=== PATIENT | male | born 1990 | race Caucasian/White ===

== ENCOUNTER 2019-05-05 17:35 | Emergency (ER) | payer MEDICAID ==
[~2019-05-05] VITALS: Ht 172.7 cm; Wt 63.5 kg
[~2019-05-05 17:35] MED LIST: DIVA500T1 PO
--- NOTE | 2019-05-05 17:35 | NUR ---
PT IN WHEELCHAIR TO ER BED 10
[2019-05-05 17:42] VITALS: BP 120/81
[2019-05-05] MEDS ORDERED: levETIRAcetam 500 MG in NACL 0.9% 100 ML IV ONE (17:45)
[2019-05-05] MEDS ORDERED: levETIRAcetam 100 MG/ML VIAL IV ONE (17:50)
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
--- NOTE | 2019-05-05 17:57 | NUR ---
INFORMED PT WE NEED URINE SAMPLE. PT REFUSED TO USE URINAL AT THIS TIME AND REFUSED STRAIGHT CATH.
[2019-05-05 18:20] LABS: BASOPHILS % (AUTO) 0.1 % (0.0-2.0); EOSINOPHILS # (AUTO) 0.1 K/uL (0-0.4); EOSINOPHILS % (AUTO) 0.8 % (0.0-4.0); HEMATOCRIT 45.7 % (36-52); HEMOGLOBIN 15.1 g/dL (12.0-18.0); LYMPHOCYTES # (AUTO) 4.2 K/uL (2.0-11.5); LYMPHOCYTES % (AUTO) 49.5 % (20.5-51.1); MEAN CORPUSCULAR HEMOGLOBIN 31 pg (27-31); MEAN CORPUSCULAR HGB CONC 33 g/dL (33-37); MEAN CORPUSCULAR VOLUME 93.4 fL (80-94); MONOCYTES # (AUTO) 0.5 K/uL (0.8-1.0); MONOCYTES % (AUTO) 5.3 % (1.7-9.3); NEUTROPHILS # (AUTO) 3.8 K/uL (1.8-7.7); NEUTROPHILS % (AUTO) 44.3 % (42.2-75.2); PLATELET COUNT (AUTO) 276 K/uL (140-450); RED BLOOD CELL COUNT(AUTO) 4.89 MIL/uL (4.20-6.10); RED CELL DISTRIBUTION WIDTH 13.1 % (11.6-13.7); WHITE BLOOD COUNT (AUTO) 8.5 K/uL (4.8-10.8)
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
--- NOTE | 2019-05-05 18:25 | NUR ---
INFORMED MOTHER AT BEDSIDE THAT WE NEED URINE SAMPLE. PT CONTINUES TO REFUSE TO USE URINAL AND STRAIGHT CATH.
[2019-05-05 18:35] LABS: ANION GAP 30.4 (8-16); CARBON DIOXIDE 15.3 mmol/L (21-32); CHLORIDE 98 mmol/L (98-107); CREATININE 1.2 mg/dL (0.7-1.3); GFR ARICAN-AMERICAN 91 mL/min (>90); GLUCOSE 67 mg/dL (74-106); POTASSIUM 3.7 mmol/L (3.5-5.1); SODIUM SERUM 140 mmol/L (136-145); UREA NITROGEN, BLOOD 13 mg/dL (7-18)
[2019-05-05 18:41] LABS: ALBUMIN 4.7 g/dL (3.4-5.0); ASPARTATE AMINOTRANSFERASE 20 U/L (15-37); TOTAL BILIRUBIN 0.4 mg/dL (0.0-1.0)
--- NOTE | 2019-05-05 18:47 | NUR ---
NOTIFIED DR. PARKER UNABLE TO OBTAIN URINE. PER DR. PARKER, NO NEED FOR URINE SAMPLE.
[2019-05-05 18:57] VITALS: BP 114/79
--- NOTE | 2019-05-05 18:58 | NUR ---
Patient discharged with v/s stable. Written and verbal after care instructions given and explained. MOTHER alert, oriented and verbalized understanding of instructions. Wheel Chair Assisted with to car. VSS. All questions addressed prior to discharge BY DR. PARKER AND D/C BY DR. PARKER. ID band removed. Patient advised to follow up with PMD. Rx of DEPAKOTE given. Patient educated on indication of medication including possible reaction and side effects. Opportunity to ask questions provided and answered. Addendum: 05/05/19 at 1901 by EUFEMIA 20G IV CANNULA REMOVED INTACT.
[2019-05-05] MEDS ORDERED: levETIRAcetam 500 MG in NACL 0.9% 100 ML IV SCH (21:00)
--- NOTE | 2019-05-07 14:02 | NUR ---
Late entry. Confirmed with RN that Kecortneyra IV completed at 1820
== END 2019-05-05 18:56 | disposition home or self-care (01) ==
LOC: MED 17:35
DX: G40.909 Epilepsy, unspecified, not intractable, without status epilepticus (principal); Z79.899 Other long term (current) drug therapy
CPT/HCPCS: 36415; 80053; 85025; 96365; 99291; G0482; J1953; 99283